=== PATIENT | female | born 1995 | race Caucasian/White ===

== ENCOUNTER 2017-10-17 13:27 | Emergency (ER) | payer OTHER ==
[~2017-10-17] VITALS: Ht 170.2 cm; Wt 145.2 kg
[~2017-10-17 13:27] MED LIST: ALBU90OI INH; Bactrim 400-801 EACH PO; Cheratussin AC118 ML PO; FLUO10 PO; Flonase 0.05% N16 GM; NAPR550 PO; Norco 5-325 Ta1 EACH PO; Prednisone20 MG PO; Pyridium200 MG PO; Roxicodone5 MG PO; Sudogest30 MG PO; Ultram50 MG PO; Zantac150 MG PO; Zofran Odt4 MG PO
[2017-10-17] MEDS ORDERED: Amoxicillin875 MG PO (13:53)
[2017-10-17] MEDS ORDERED: Ciloxan5 ML LEFTEAR (13:53)
[2018-06-19] MEDS ORDERED: BENZ100A PO (03:46)
== END 2017-10-17 13:56 | disposition home or self-care (01) ==
LOC: ER 13:27
DX: H66.92 Otitis media, unspecified, left ear (principal); H72.92 Unspecified perforation of tympanic membrane, left ear; F17.210 Nicotine dependence, cigarettes, uncomplicated
CPT/HCPCS: 99283

== ENCOUNTER 2018-09-29 14:06 | Emergency (ER) | payer OTHER ==
[~2018-09-29] VITALS: Ht 170.2 cm; Wt 172.4 kg
[~2018-09-29 14:06] MED LIST changes: +Amoxicillin875 MG PO; +BENZ100A PO; +Ciloxan5 ML LEFTEAR
[2018-09-29] MEDS ORDERED: ALBU90OI INH (15:09)
== END 2018-09-29 15:14 | disposition home or self-care (01) ==
LOC: ER 14:06
DX: J45.901 Unspecified asthma with (acute) exacerbation (principal); Z87.891 Personal history of nicotine dependence
CPT/HCPCS: 71046; 94640; 99283-25

== ENCOUNTER 2018-10-11 22:11 | Emergency (ER) | payer OTHER ==
[~2018-10-11] VITALS: Ht 172.7 cm; Wt 190.5 kg
[2018-10-12] MEDS ORDERED: ALBU3IS INH (00:59)
[2018-10-12] MEDS ORDERED: Prednisone20 MG PO (00:59)
== END 2018-10-12 01:12 | disposition home or self-care (01) ==
LOC: ER 22:11
DX: J40 Bronchitis, not specified as acute or chronic (principal); F41.0 Panic disorder [episodic paroxysmal anxiety]; Z87.891 Personal history of nicotine dependence
CPT/HCPCS: 70360; 71046; 94640; 96374; 96375; 99284-25; J2060; J2930

== ENCOUNTER 2019-02-15 22:47 | Emergency (ER) | payer OTHER ==
[~2019-02-15] VITALS: Ht 170.2 cm; Wt 180.1 kg
[~2019-02-15 22:47] MED LIST changes: +ALBU3IS INH; +PRED20 PO
[2019-02-15] MEDS ORDERED: Verotin-Gr Cap1 EACH PO (23:28)
[2019-02-15] MEDS ORDERED: BUSP5 PO (23:28)
[2019-02-15] MEDS ORDERED: METF500 PO (23:28)
[2019-02-15] MEDS ORDERED: CETI5 PO (23:28)
[2019-02-15 23:34] LABS: Source, Urine Clean Catch
[2019-02-15 23:37] LABS: Bilirubin, Urine Neg (Neg); Blood, Urine Neg (Neg); Glucose Qualitative, Urine Neg (Neg); Ketones, Urine Neg (Neg); Leukocyte Esterase, Urine 2+ (Neg); Nitrite, Urine Neg (Neg); Protein, Urine Neg (Neg); Specific Gravity, Urine 1.015 (1.003-1.022); Urobilinogen, Urine NORM (Normal)
[2019-02-15 23:43] LABS: Appearance, Urine Cloudy (Clear); Bacteria Few /hpf; Color, Urine Yellow (P-Yellow); Red Blood Cells, Urine Not Seen /hpf (0-2); Squamous Epithelial Cells Many /hpf (Few)
[2019-02-15 23:44] LABS: Amorphous Mod (0-Heavy); Mucus Light (0-Heavy)
[2019-02-15 23:45] LABS: BASOPHILS ABSOLUTE AUTO 0.12 K/mm3 (0.00-0.23); BASOPHILS PERCENT AUTO 1 % (0-2); EOSINOPHILS PERCENT AUTO 4 % (0-6); Hematocrit 47.2 % (33.0-51.0); Hemoglobin 15.7 g/dL (11.5-16.0); IMMATURE GRAN ABSOLUTE AUTO 0.06 K/mm3 (0.00-0.10); IMMATURE GRAN PERCENT AUTO 0 % (0-1); LYMPHOCYTES ABSOLUTE AUTO 4.14 K/mm3 (0.84-5.20); LYMPHOCYTES PERCENT AUTO 29 % (21-46); MONOCYTES ABSOLUTE AUTO 0.92 K/mm3 (0.16-1.47); MONOCYTES PERCENT AUTO 6 % (4-13); Mean Corpuscular HGB Conc 33.3 g/dL (31.5-36.5); Mean Corpuscular Volume 87 fL (80-100); Mean Platelet Volume 9.6 fL (9.1-12.4); NEUTROPHILS ABSOLUTE AUTO 8.49 K/mm3 (1.96-9.15); NEUTROPHILS PERCENT AUTO 59 % (41-73); Platelet Count 408 K/mm3 (150-400); RDW Standard Deviation 41.1 fL (35.1-46.3); Red Blood Cell Count 5.42 M/mm3 (3.80-5.20); White Blood Cell Count 14.33 K/mm3 (4.00-11.30)
[2019-02-16 00:07] LABS: Alanine Aminotransfer (ALT/SGP 39 U/L (12-78); Albumin, Blood 3.6 g/dL (3.4-5.0); Albumin/Globulin Ratio 0.9 (0.8-1.8); Alk Phos 70 U/L (50-136); Anion Gap 7 mmol/L (6-16); Aspartate Aminotrans (AST/SGOT 41 U/L (12-37); Bilirubin, Total 0.5 mg/dL (0.1-1.0); Blood Urea Nitrogen 11 mg/dL (8-24); Bun/Creatinine Ratio 18.4 (12.0-20.0); CO2, Blood 23 mmol/L (21-32); Chloride, Blood 107 mmol/L (98-108); Globulin, Blood 4.1 g/dL (2.2-4.0); Glomerular Filtration Rate >60 (60-); Glucose, Blood 102 mg/dL (70-99); Potassium, Blood 4.4 mmol/L (3.5-5.5); Sodium, Blood 137 mmol/L (136-145); Total Protein, Blood 7.7 g/dL (6.4-8.2)
[2019-02-16 00:21] LABS: Beta HCG, Quantitative, Serum 2903 mIU/mL (0-3)
[2019-02-16] MEDS ORDERED: Macrobid 100 M100 MG PO (00:32)
== END 2019-02-16 00:49 | disposition home or self-care (01) ==
LOC: ER 22:47
PROVIDERS: Emergency Medicine
DX: O23.41 Unspecified infection of urinary tract in pregnancy, first trimester (principal); Z3A.01 Less than 8 weeks gestation of pregnancy; Z91.030 Bee allergy status; Z79.899 Other long term (current) drug therapy; Z79.84 Long term (current) use of oral hypoglycemic drugs; Z87.891 Personal history of nicotine dependence
CPT/HCPCS: 36415; 76801; 76817; 80053; 81001; 81025; 84702; 85025; 86900; 86901; 87086; 99284-25

== ENCOUNTER → 2019-03-13 | Outpatient (CLI) | payer OTHER ==
[~2019-03-13] MED LIST changes: +BUSP5 PO; +CETI5 PO; +METF500 PO; +Macrobid 100 M100 MG PO; +Verotin-Gr Cap1 EACH PO
[2019-03-14 22:06] LABS: CHLAMYDIA TRACHOMATIS, NAA Negative (Negative); NEISSERIA GONORRHOEAE, NAA Negative (Negative)
== END | disposition home or self-care (01) ==
LOC: LAB SHORT 16:40 → LAB 16:40
PROVIDERS: Obstetrics & Gynecology
DX: Z34.00 Encounter for supervision of normal first pregnancy, unspecified trimester (principal); Z86.14 Personal history of Methicillin resistant Staphylococcus aureus infection
CPT/HCPCS: 87081; 87491; 87591; G0123

== ENCOUNTER → 2019-04-18 | Outpatient (CLI) | payer OTHER | END | disposition home or self-care (01) | LOC: LAB 17:51 → LAB SHORT 17:51 | DX: Z09 Encounter for follow-up examination after completed treatment for conditions other than malignant neoplasm (principal); Z86.14 Personal history of Methicillin resistant Staphylococcus aureus infection | CPT/HCPCS: 87081 ==

== ENCOUNTER 2019-09-24 17:00 | Inpatient (IN) | payer OTHER ==
[~2019-09-24] VITALS: Ht 172.7 cm; Wt 198.4 kg
[2019-09-24] MEDS ORDERED: LABE100 PO (17:50)
[2019-09-24 17:51] LABS: BASOPHILS ABSOLUTE AUTO 0.06 K/mm3 (0.00-0.23); BASOPHILS PERCENT AUTO 1 % (0-2); EOSINOPHILS ABSOLUTE AUTO 0.17 K/mm3 (0.00-0.68); EOSINOPHILS PERCENT AUTO 2 % (0-6); Hematocrit 43.5 % (33.0-51.0); Hemoglobin 14.3 g/dL (11.5-16.0); IMMATURE GRAN ABSOLUTE AUTO 0.03 K/mm3 (0.00-0.10); IMMATURE GRAN PERCENT AUTO 0 % (0-1); LYMPHOCYTES ABSOLUTE AUTO 1.89 K/mm3 (0.84-5.20); LYMPHOCYTES PERCENT AUTO 16 % (21-46); MONOCYTES PERCENT AUTO 6 % (4-13); Mean Corpuscular HGB Conc 32.9 g/dL (31.5-36.5); Mean Corpuscular Volume 85 fL (80-100); Mean Platelet Volume 9.9 fL (9.1-12.4); NEUTROPHILS ABSOLUTE AUTO 8.71 K/mm3 (1.96-9.15); NEUTROPHILS PERCENT AUTO 75 % (41-73); Platelet Count 362 K/mm3 (150-400); RDW Coefficient Variation 13.9 % (11.7-14.2); RDW Standard Deviation 43.2 fL (35.1-46.3); White Blood Cell Count 11.56 K/mm3 (4.00-11.30)
[2019-09-24] MEDS ORDERED: SERT25 PO (17:51)
[2019-09-24] MEDS ORDERED: LEVSOD125 PO (17:51)
[2019-09-24 18:54] LABS: Alanine Aminotransfer (ALT/SGP 27 U/L (12-78); Albumin, Blood 2.9 g/dL (3.4-5.0); Albumin/Globulin Ratio 0.6 (0.8-1.8); Alk Phos 164 U/L (50-136); Anion Gap 8 mmol/L (6-16); Aspartate Aminotrans (AST/SGOT 28 U/L (12-37); Bilirubin, Total 0.5 mg/dL (0.1-1.0); Blood Urea Nitrogen 10 mg/dL (8-24); CO2, Blood 19 mmol/L (21-32); Calcium, Blood 9.7 mg/dL (8.5-10.1); Chloride, Blood 109 mmol/L (98-108); Creatinine, Blood 0.59 mg/dL (0.40-1.00); Globulin, Blood 4.9 g/dL (2.2-4.0); Glomerular Filtration Rate >60 (60-); Glucose, Blood 97 mg/dL (70-99); Potassium, Blood 4.3 mmol/L (3.5-5.5); Sodium, Blood 136 mmol/L (136-145); Total Protein, Blood 7.8 g/dL (6.4-8.2)
--- NOTE | 2019-09-24 19:27 | NUR ---
LABS DRAWN FROM IV START PER PROTOCOL
--- NOTE | 2019-09-26 06:55 | NUR ---
pt declines bedside report as she would like to sleep at this time.
--- NOTE | 2019-09-26 10:00 | NUR ---
Patient Discharged to home
== END 2019-09-26 10:20 | disposition home or self-care (01) | DRG 832 ==
LOC: OBS 17:00 → BC 17:06 → OBS 17:24 → BC 17:24
PROVIDERS: ADMIT Advanced Practice Midwife
PROC: 3E0P7VZ Introduction of Hormone into Female Reproductive, Via Natural or Artificial Opening (ICD-10-PCS; principal; 2019-09-24)
DX: O14.03 Mild to moderate pre-eclampsia, third trimester (principal); O99.323 Drug use complicating pregnancy, third trimester; Z3A.36 36 weeks gestation of pregnancy; O24.410 Gestational diabetes mellitus in pregnancy, diet controlled; F12.90 Cannabis use, unspecified, uncomplicated; O61.0 Failed medical induction of labor; O99.343 Other mental disorders complicating pregnancy, third trimester; F41.1 Generalized anxiety disorder; F43.10 Post-traumatic stress disorder, unspecified; O99.213 Obesity complicating pregnancy, third trimester; E66.01 Morbid (severe) obesity due to excess calories; O99.513 Diseases of the respiratory system complicating pregnancy, third trimester; J45.909 Unspecified asthma, uncomplicated; Z86.14 Personal history of Methicillin resistant Staphylococcus aureus infection; Z79.899 Other long term (current) drug therapy
CPT/HCPCS: 36415; 80053; 82947; 85025; 86850; 86900; 86901; J7120

== ENCOUNTER 2019-10-01 15:49 | Inpatient (IN) | payer OTHER ==
[~2019-10-01] VITALS: Ht 172.7 cm; Wt 200.0 kg
[~2019-10-01 15:49] MED LIST changes: +LABE100 PO; +LEVSOD125 PO; +SERT25 PO
[2019-10-01 16:33] LABS: BASOPHILS ABSOLUTE AUTO 0.07 K/mm3 (0.00-0.23); BASOPHILS PERCENT AUTO 1 % (0-2); EOSINOPHILS ABSOLUTE AUTO 0.22 K/mm3 (0.00-0.68); EOSINOPHILS PERCENT AUTO 2 % (0-6); Hemoglobin 13.5 g/dL (11.5-16.0); IMMATURE GRAN ABSOLUTE AUTO 0.03 K/mm3 (0.00-0.10); IMMATURE GRAN PERCENT AUTO 0 % (0-1); LYMPHOCYTES ABSOLUTE AUTO 2.09 K/mm3 (0.84-5.20); LYMPHOCYTES PERCENT AUTO 20 % (21-46); MONOCYTES ABSOLUTE AUTO 0.72 K/mm3 (0.16-1.47); MONOCYTES PERCENT AUTO 7 % (4-13); Mean Corpuscular HGB 28.2 pg (26.0-34.0); Mean Corpuscular HGB Conc 32.9 g/dL (31.5-36.5); Mean Corpuscular Volume 86 fL (80-100); NEUTROPHILS ABSOLUTE AUTO 7.51 K/mm3 (1.96-9.15); NEUTROPHILS PERCENT AUTO 71 % (41-73); Platelet Count 306 K/mm3 (150-400); RDW Coefficient Variation 13.9 % (11.7-14.2); RDW Standard Deviation 43.3 fL (35.1-46.3); Red Blood Cell Count 4.78 M/mm3 (3.80-5.20); White Blood Cell Count 10.64 K/mm3 (4.00-11.30)
--- NOTE | 2019-10-02 07:15 | NUR ---
PT SLEEPING SOUNDLY. WILL ASSESS WHEN SHE WAKES. WILL DISCUSS PLAN OF CARE WITH CNM.
--- NOTE | 2019-10-02 19:24 | NUR ---
REPORT TO ONCOMING SHIFT
--- NOTE | 2019-10-03 09:24 | NUR ---
10/03/19 0924 Josie Palacios 0818 PT ARRIVE TO [facility] OR WITH REYES CATHETER INTACT DRAINING CLEAR YELLOW URINE
[2019-10-03 09:31] LABS: PCO2 Cord - Venous 57.1 mmHg (40-50); PO2 Cord - Venous 16.3 mmHg (28-32); pH Umbilical Cord - Venous 7.25 (7.26-7.35)
[2019-10-03 09:33] LABS: pH Cord - Arterial 7.21 (7.28-7.35)
[2019-10-03 09:34] LABS: PO2 Cord - Arterial < 13 mmHg (16-20)
--- NOTE | 2019-10-03 10:50 | NUR ---
BOTTLE FED DUE TO LOW BLOOD SUGAR FOR NB
--- NOTE | 2019-10-03 16:40 | NUR ---
REPORT TO STEVENSON MEZA RN.
[2019-10-04 05:19] LABS: BASOPHILS ABSOLUTE AUTO 0.05 K/mm3 (0.00-0.23); BASOPHILS PERCENT AUTO 1 % (0-2); EOSINOPHILS ABSOLUTE AUTO 0.15 K/mm3 (0.00-0.68); EOSINOPHILS PERCENT AUTO 1 % (0-6); Hematocrit 36.3 % (33.0-51.0); Hemoglobin 11.5 g/dL (11.5-16.0); IMMATURE GRAN ABSOLUTE AUTO 0.03 K/mm3 (0.00-0.10); IMMATURE GRAN PERCENT AUTO 0 % (0-1); LYMPHOCYTES ABSOLUTE AUTO 1.55 K/mm3 (0.84-5.20); LYMPHOCYTES PERCENT AUTO 14 % (21-46); MONOCYTES ABSOLUTE AUTO 0.88 K/mm3 (0.16-1.47); MONOCYTES PERCENT AUTO 8 % (4-13); Mean Corpuscular HGB 27.8 pg (26.0-34.0); Mean Corpuscular HGB Conc 31.7 g/dL (31.5-36.5); Mean Corpuscular Volume 88 fL (80-100); NEUTROPHILS ABSOLUTE AUTO 8.42 K/mm3 (1.96-9.15); NEUTROPHILS PERCENT AUTO 76 % (41-73); Platelet Count 254 K/mm3 (150-400); RDW Coefficient Variation 14.4 % (11.7-14.2); RDW Standard Deviation 46.1 fL (35.1-46.3); Red Blood Cell Count 4.14 M/mm3 (3.80-5.20); White Blood Cell Count 11.08 K/mm3 (4.00-11.30)
--- NOTE | 2019-10-04 06:03 | NUR ---
OMAR'Malka REYES AT 0445.
--- NOTE | 2019-10-04 06:36 | NUR ---
RN AND BRAKE HOLDER GOT PATIENT UP TO SHOWER. REYES CATHETER D/C, WNL. PATIENT TOLERATED WELL. LINEN CHANGED, NEW BINDERS IN PLACE. JG DRESSING IN PLACE, C/D/I.
--- NOTE | 2019-10-04 13:22 | NUR ---
PATIENT RESTING COMFORTABLY IN BED, PLANS TO AMBULATE DOWN TO [facility] TO SEE NINA
--- NOTE | 2019-10-04 13:31 | NUR ---
ASSIST PATIENT WITH ABDOMEN BINDER AND PERICARE, PT TO AMBULATE DOWN TO [facility] W/ FOB TO VISIT NB
--- NOTE | 2019-10-04 16:55 | NUR ---
REPT OFF TO A LEO RN, PT REMAINS DOWN IN [facility] HOLDING AND STATES SHE "FEELS GREAT" HAVING GOOD PAIN CONTROL WITH PO MEDS. VOIDING W/O DIFFICULTY. MINIMAL ASSIST UP TO BATHROOM
[2019-10-05] MEDS ORDERED: COLACE100 MG PO (09:27)
[2019-10-05] MEDS ORDERED: IBUP800 PO (09:27)
== END 2019-10-05 18:24 | disposition home or self-care (01) | DRG 788 ==
LOC: OBS 15:49 → BC 15:49 → OBS 15:58 → BC 16:02
PROVIDERS: Obstetrics & Gynecology; ADMIT Advanced Practice Midwife
PROC: 3E0P7VZ Introduction of Hormone into Female Reproductive, Via Natural or Artificial Opening (ICD-10-PCS; 2019-10-01)
PROC: 3E033VJ Introduction of Other Hormone into Peripheral Vein, Percutaneous Approach (ICD-10-PCS; 2019-10-02)
PROC: 10H07YZ Insertion of Other Device into Products of Conception, Via Natural or Artificial Opening (ICD-10-PCS; 2019-10-02)
PROC: 10D00Z1 Extraction of Products of Conception, Low, Open Approach (ICD-10-PCS; principal; 2019-10-03 07:30)
DX: O11.4 Pre-existing hypertension with pre-eclampsia, complicating childbirth (principal); O10.02 Pre-existing essential hypertension complicating childbirth; O99.214 Obesity complicating childbirth; E66.01 Morbid (severe) obesity due to excess calories; O24.420 Gestational diabetes mellitus in childbirth, diet controlled; Z3A.38 38 weeks gestation of pregnancy; Z37.0 Single live birth; O99.284 Endocrine, nutritional and metabolic diseases complicating childbirth; E03.9 Hypothyroidism, unspecified; O99.344 Other mental disorders complicating childbirth; F41.9 Anxiety disorder, unspecified; F32.9 Major depressive disorder, single episode, unspecified; O61.0 Failed medical induction of labor; O76 Abnormality in fetal heart rate and rhythm complicating labor and delivery; O77.0 Labor and delivery complicated by meconium in amniotic fluid
CPT/HCPCS: 36415; 36416; 82803; 82947; 85025; 86850; 86900; 86901; J0330; J0690; J1170; J1885; J2250; J2370; J2590; J2704; J2765; J3010; J7120

== ENCOUNTER 2019-11-05 02:16 | Emergency (ER) | payer OTHER ==
[~2019-11-05] VITALS: Ht 170.2 cm; Wt 191.4 kg
[~2019-11-05 02:16] MED LIST changes: +COLACE100 MG PO; +IBUP800 PO
[2019-11-05] MEDS ORDERED: AMOCLA875 (02:42)
[2019-11-05 04:42] LABS: BASOPHILS ABSOLUTE AUTO 0.04 K/mm3 (0.00-0.23); BASOPHILS PERCENT AUTO 1 % (0-2); EOSINOPHILS PERCENT AUTO 7 % (0-6); Hematocrit 41.9 % (33.0-51.0); Hemoglobin 13.4 g/dL (11.5-16.0); IMMATURE GRAN ABSOLUTE AUTO 0.03 K/mm3 (0.00-0.10); IMMATURE GRAN PERCENT AUTO 0 % (0-1); LYMPHOCYTES ABSOLUTE AUTO 3.11 K/mm3 (0.84-5.20); LYMPHOCYTES PERCENT AUTO 38 % (21-46); MONOCYTES ABSOLUTE AUTO 0.53 K/mm3 (0.16-1.47); MONOCYTES PERCENT AUTO 7 % (4-13); Mean Corpuscular HGB 27.7 pg (26.0-34.0); Mean Corpuscular Volume 87 fL (80-100); Mean Platelet Volume 9.2 fL (9.1-12.4); NEUTROPHILS PERCENT AUTO 47 % (41-73); Platelet Count 336 K/mm3 (150-400); RDW Coefficient Variation 13.6 % (11.7-14.2); RDW Standard Deviation 43.3 fL (35.1-46.3); Red Blood Cell Count 4.84 M/mm3 (3.80-5.20); White Blood Cell Count 8.21 K/mm3 (4.00-11.30)
[2019-11-05 05:03] LABS: Alanine Aminotransfer (ALT/SGP 42 U/L (12-78); Albumin, Blood 3.3 g/dL (3.4-5.0); Albumin/Globulin Ratio 0.8 (0.8-1.8); Alk Phos 108 U/L (50-136); Anion Gap 8 mmol/L (6-16); Aspartate Aminotrans (AST/SGOT 40 U/L (12-37); Bilirubin, Total 0.2 mg/dL (0.1-1.0); Blood Urea Nitrogen 15 mg/dL (8-24); Bun/Creatinine Ratio 22.4 (12.0-20.0); CO2, Blood 26 mmol/L (21-32); Calcium, Blood 8.8 mg/dL (8.5-10.1); Chloride, Blood 109 mmol/L (98-108); Creatinine, Blood 0.67 mg/dL (0.40-1.00); Globulin, Blood 4.3 g/dL (2.2-4.0); Glomerular Filtration Rate >60 (60-); Glucose, Blood 98 mg/dL (70-99); Potassium, Blood 3.7 mmol/L (3.5-5.5); Sodium, Blood 143 mmol/L (136-145); Total Protein, Blood 7.6 g/dL (6.4-8.2)
[2019-11-05] MEDS ORDERED: Bactrim Ds Tab1 EACH PO (05:07)
== END 2019-11-05 05:16 | disposition home or self-care (01) ==
LOC: ER 02:16
PROVIDERS: Emergency Medicine
DX: O90.89 Other complications of the puerperium, not elsewhere classified (principal); M79.3 Panniculitis, unspecified; L03.311 Cellulitis of abdominal wall; Z91.038 Other insect allergy status; Z87.891 Personal history of nicotine dependence
CPT/HCPCS: 80053; 85025; 99283; A9270-GY

== ENCOUNTER 2020-12-10 19:33 | Emergency (ER) | payer OTHER ==
[~2020-12-10] VITALS: Ht 172.7 cm; Wt 181.4 kg
[~2020-12-10 19:33] MED LIST changes: +AMOCLA875; +Bactrim Ds Tab1 EACH PO; +CLIN150 PO; +EUTHYROX100 MC1; +SULF500 PO; +ZOLOFT50 MG PO
[2020-12-10 20:34] LABS: BASOPHILS ABSOLUTE AUTO 0.07 K/mm3 (0.00-0.23); BASOPHILS PERCENT AUTO 1 % (0-2); EOSINOPHILS ABSOLUTE AUTO 0.52 K/mm3 (0.00-0.68); EOSINOPHILS PERCENT AUTO 5 % (0-6); Hematocrit 45.2 % (33.0-51.0); Hemoglobin 14.7 g/dL (11.5-16.0); IMMATURE GRAN ABSOLUTE AUTO 0.03 K/mm3 (0.00-0.10); IMMATURE GRAN PERCENT AUTO 0 % (0-1); LYMPHOCYTES ABSOLUTE AUTO 3.12 K/mm3 (0.84-5.20); LYMPHOCYTES PERCENT AUTO 29 % (21-46); MONOCYTES PERCENT AUTO 7 % (4-13); Mean Corpuscular HGB 27.6 pg (26.0-34.0); Mean Corpuscular HGB Conc 32.5 g/dL (31.5-36.5); Mean Corpuscular Volume 85 fL (80-100); Mean Platelet Volume 9.6 fL (9.1-12.4); NEUTROPHILS ABSOLUTE AUTO 6.19 K/mm3 (1.96-9.15); NEUTROPHILS PERCENT AUTO 58 % (41-73); Platelet Count 379 K/mm3 (150-400); RDW Coefficient Variation 13.9 % (11.7-14.2); RDW Standard Deviation 42.9 fL (35.1-46.3); Red Blood Cell Count 5.33 M/mm3 (3.80-5.20); White Blood Cell Count 10.63 K/mm3 (4.00-11.30)
[2020-12-10 20:56] LABS: Alanine Aminotransfer (ALT/SGP 25 U/L (12-78); Albumin, Blood 3.6 g/dL (3.4-5.0); Albumin/Globulin Ratio 0.9 (0.8-1.8); Alk Phos 87 U/L (50-136); Anion Gap 6 mmol/L (6-16); Aspartate Aminotrans (AST/SGOT 17 U/L (12-37); Bilirubin, Total 0.6 mg/dL (0.1-1.0); Blood Urea Nitrogen 11 mg/dL (8-24); CO2, Blood 24 mmol/L (21-32); Calcium, Blood 8.8 mg/dL (8.5-10.1); Chloride, Blood 112 mmol/L (98-108); Creatinine, Blood 0.73 mg/dL (0.40-1.00); Globulin, Blood 4.1 g/dL (2.2-4.0); Glomerular Filtration Rate >60 (60-); Glucose, Blood 88 mg/dL (70-99); Potassium, Blood 3.8 mmol/L (3.5-5.5); Sodium, Blood 142 mmol/L (136-145); Total Protein, Blood 7.7 g/dL (6.4-8.2)
[2020-12-10] MEDS ORDERED: CYCL10 PO (23:16)
[2020-12-10] MEDS ORDERED: Norco 5-325 Ta1 EACH PO (23:16)
== END 2020-12-10 23:30 | disposition home or self-care (01) ==
LOC: ER 19:33
PROVIDERS: Physician Assistant
DX: S30.0XXA Contusion of lower back and pelvis, initial encounter (principal); S20.229A Contusion of unspecified back wall of thorax, initial encounter; Z91.030 Bee allergy status; Z79.899 Other long term (current) drug therapy; Z87.891 Personal history of nicotine dependence; V03.00XA Pedestrian on foot injured in collision with car, pick-up truck or van in nontraffic accident, initial encounter; Y92.481 Parking lot as the place of occurrence of the external cause
CPT/HCPCS: 36415; 74177; 80053; 85025; 96374-59; 99284-25; A9270; J1170; Q9967

== ENCOUNTER 2021-10-09 22:02 | Inpatient (IN) | payer OTHER ==
[~2021-10-09] VITALS: Ht 172.7 cm; Wt 207.3 kg
[~2021-10-09 22:02] MED LIST changes: +CYCL10 PO
[2021-10-09] MEDS ORDERED: Ventolin/Prove6.7 GM INH (22:20)
[2021-10-10 00:06] LABS: BASOPHILS ABSOLUTE AUTO 0.08 K/mm3 (0.00-0.23); BASOPHILS PERCENT AUTO 1 % (0-2); EOSINOPHILS ABSOLUTE AUTO 0.28 K/mm3 (0.00-0.68); EOSINOPHILS PERCENT AUTO 3 % (0-6); Hematocrit 49.6 % (33.0-51.0); Hemoglobin 16.2 g/dL (11.5-16.0); IMMATURE GRAN ABSOLUTE AUTO 0.06 K/mm3 (0.00-0.10); IMMATURE GRAN PERCENT AUTO 1 % (0-1); LYMPHOCYTES ABSOLUTE AUTO 0.71 K/mm3 (0.84-5.20); LYMPHOCYTES PERCENT AUTO 7 % (21-46); MONOCYTES ABSOLUTE AUTO 0.62 K/mm3 (0.16-1.47); MONOCYTES PERCENT AUTO 6 % (4-13); Mean Corpuscular HGB 28.4 pg (26.0-34.0); Mean Corpuscular HGB Conc 32.7 g/dL (31.5-36.5); Mean Corpuscular Volume 87 fL (80-100); Mean Platelet Volume 9.3 fL (9.1-12.4); NEUTROPHILS ABSOLUTE AUTO 8.18 K/mm3 (1.96-9.15); NEUTROPHILS PERCENT AUTO 82 % (41-73); Platelet Count 323 K/mm3 (150-400); RDW Coefficient Variation 13.5 % (11.7-14.2); RDW Standard Deviation 42.7 fL (35.1-46.3); Red Blood Cell Count 5.71 M/mm3 (3.80-5.20); White Blood Cell Count 9.93 K/mm3 (4.00-11.30)
[2021-10-10 00:21] LABS: Anion Gap 8 mmol/L (6-16); Blood Urea Nitrogen 13 mg/dL (8-24); Bun/Creatinine Ratio 17.7 (12.0-20.0); CO2, Blood 25 mmol/L (21-32); Chloride, Blood 104 mmol/L (98-108); Creatinine, Blood 0.74 mg/dL (0.40-1.00); Glomerular Filtration Rate >60 (60-); Glucose, Blood 107 mg/dL (70-99); Sodium, Blood 137 mmol/L (136-145)
--- NOTE | 2021-10-10 07:30 | NUR ---
CALLED DR LARRY- PT IS ALERT AND ORIENTED 25 YO FEMALE ON ROOM AIR WITH NO S&S OF DISTRESS NOTED ON ASSESSMENT. PT HAD AN ORDER FOR OLUMIANT, PER PHARMACY SHE DOES NOT FLORY THE CRITERIA FOR THIS MED. RECIEVED ORDER TO DC. PT IS TO LARGE TO FIT INTO THE CT MACHINE AND VQ SCAN IS DONE IN THE SAME SIZED MACHINE. DR AWARE OF THIS ORDER RECIEVED TO DC THE ORDER FOR VQ AT THIS TIME.
--- NOTE | 2021-10-10 09:18 | NUR ---
Initial Interview with [facility] Community Water Commissioner 1. Who did you speak with? Spoke with patient 2. What is the patient's prior level of functions? Patient lives independently with her two year old daughter and her maricarmen Valdovinos. They live in an apartment with twelve stairs to navigate. Patient able to perform ADL's without assistance. 3. Is the patient and/or family able to provide transportation to and from doctor's appointments and pickling grader prescriptions? 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 She is able to provide transportation to and from appointments and pickling grader medication from pharmacy as needed. 4. Does patient still drive? Yes 5. POA/PCP/NOK: Maricarmen Valdovinos [phone]/Mother Abbi [phone] 6. Discharge goals: Date TBD -Home [facility] preference: [facility] (if needed) -DME: TBD -Medication Management: self manages -Preferred Pharmacy: [facility] -Housekeeping/Cooking: patient and maricarmen take care of housekeeping/cooking 7. List barriers to discharge: None known at this time 8. Discharge Plan: TBD/Home 9. PCP Follow up appointment: Will be scheduled within seven calendar days of discharge 10. Other Notes: patient is not a . Explained importance of hospital follow-up with PCP within 7 days of discharge. Numbers confirmed: [phone]/Collin Valdovinos [phone]
[2021-10-10] MEDS ORDERED: XARELTO20 MG PO (14:48)
[2021-10-10] MEDS ORDERED: PRED20 PO (14:48)
--- NOTE | 2021-10-10 17:44 | NUR ---
DISCHARGE NOTE- PT WAS GIVEN VERBAL AND WRITTEN DISCHARGE INSTRUCTIONS AND ACKNOWLEDGED UNDERSTANDING OF THEM. PT DRESSED HERSELF, IV AND TELE WERE DC'D WELL CONT PULSE OX AT THE TIME OF DISCHARGE. PT WAS ESCORTED TO THE PARKING LOT VIA WC, NO S&S OF DISTRESS AT THE TIME OF DISCHARGE, NO FURTHER QUESTIONS AT THE TIME OF DISCHARGE. PT WAS ALSO PROVIDED WITH A NOTE FROM DR LARRY FOR RETURN TO WORK ON 10-16-2021 ACCOUNTING FOR A 5 DAY QUARANTINE. PT IS AWARE AND RECIEVED EDUCATION ABOUT COVID QUARANTIENE.
--- NOTE | 2021-10-13 07:39 | NUR ---
Per Dr. Lock discharge appropriate. Patient did not oppose discharge. Patient discharged home to residence/apartment. She lives with her daughter and tanna. Date of discharge: 10/10/2021 Date of admission: 10/10/2021 Provisional diagnosis at time of admission: COVID Final Diagnosis at time of discharge: COVID Transportation provided by: Private owned vehicle; patient drove to the ER Location/Residence: [address] [place] [address] DME Ordered: None ordered Follow-ups needed: [facility] will contact patient to schedule hospital follow-up visit. Reinforced need to attend follow-up (telehealth due to COVID). Provider/PCP: Dr. Ray Lock When: WITHIN 1 WEEK Specialty: N/A Confirmed numbers: Patient [phone]/Alternate number [phone]-tanna Aruna Comment: Explained to patient to contact PCP if any questions regarding medication management, social service needs, and if condition worsens go to Urgent Care/ER. No barriers to discharge. Patient has a support network.
== END 2021-10-10 17:10 | disposition home or self-care (01) | DRG 178 ==
LOC: ER 22:02 → MEDS 10-10 02:27
PROVIDERS: Emergency Medicine; ADMIT Internal Medicine
PROC: 3E0333Z Introduction of Anti-inflammatory into Peripheral Vein, Percutaneous Approach (ICD-10-PCS; principal; 2021-10-10)
PROC: 8E0ZXY6 Isolation (ICD-10-PCS; 2021-10-10)
PROC: 5A09357 Assistance with Respiratory Ventilation, Less than 24 Consecutive Hours, Continuous Positive Airway Pressure (ICD-10-PCS; 2021-10-10)
DX: U07.1 COVID-19 (principal); Z68.44 Body mass index [BMI] 60.0-69.9, adult; E66.01 Morbid (severe) obesity due to excess calories; F41.9 Anxiety disorder, unspecified; F32.A Depression, unspecified; E03.9 Hypothyroidism, unspecified; J45.909 Unspecified asthma, uncomplicated; F17.210 Nicotine dependence, cigarettes, uncomplicated; Z90.49 Acquired absence of other specified parts of digestive tract; Z98.891 History of uterine scar from previous surgery; Z91.030 Bee allergy status; Z79.899 Other long term (current) drug therapy
CPT/HCPCS: 71045; 80048; 85025; 85379; 93005; 93010; 93306; 93970; 94644; 94762; 96372; 96374; 99285-25; A9270; J1100; J1650; J7030

== ENCOUNTER 2022-01-19 17:21 | Emergency (ER) | payer OTHER ==
[~2022-01-19] VITALS: Ht 172.7 cm; Wt 202.8 kg
[~2022-01-19 17:21] MED LIST changes: +Ventolin/Prove6.7 GM INH; +XARELTO20 MG PO
== END 2022-01-19 19:20 | disposition left against medical advice (07) ==
LOC: ER 17:21
DX: M79.675 Pain in left toe(s) (principal); Z53.21 Procedure and treatment not carried out due to patient leaving prior to being seen by health care provider; Z79.52 Long term (current) use of systemic steroids; Z79.01 Long term (current) use of anticoagulants
CPT/HCPCS: 73630

== ENCOUNTER 2022-08-25 18:42 | Emergency (ER) | payer OTHER ==
[~2022-08-25] VITALS: Ht 172.7 cm; Wt 208.7 kg
[2022-08-25 19:39] LABS: BASOPHILS ABSOLUTE AUTO 0.12 K/mm3 (0.00-0.23); BASOPHILS PERCENT AUTO 1 % (0-2); EOSINOPHILS ABSOLUTE AUTO 0.55 K/mm3 (0.00-0.68); EOSINOPHILS PERCENT AUTO 5 % (0-6); Hematocrit 46.5 % (33.0-51.0); Hemoglobin 15.5 g/dL (11.5-16.0); IMMATURE GRAN ABSOLUTE AUTO 0.05 K/mm3 (0.00-0.10); IMMATURE GRAN PERCENT AUTO 0 % (0-1); LYMPHOCYTES PERCENT AUTO 26 % (21-46); MONOCYTES PERCENT AUTO 5 % (4-13); Mean Corpuscular HGB 28.4 pg (26.0-34.0); Mean Corpuscular HGB Conc 33.3 g/dL (31.5-36.5); Mean Corpuscular Volume 85 fL (80-100); Mean Platelet Volume 9.1 fL (9.1-12.4); NEUTROPHILS ABSOLUTE AUTO 7.25 K/mm3 (1.96-9.15); NEUTROPHILS PERCENT AUTO 63 % (41-73); Platelet Count 370 K/mm3 (150-400); RDW Coefficient Variation 13.4 % (11.7-14.2); RDW Standard Deviation 41.3 fL (35.1-46.3); Red Blood Cell Count 5.45 M/mm3 (3.80-5.20); White Blood Cell Count 11.57 K/mm3 (4.00-11.30)
[2022-08-25 20:05] LABS: Albumin, Blood 3.5 g/dL (3.4-5.0); Albumin/Globulin Ratio 0.8 (0.8-1.8); Bilirubin, Total 0.8 mg/dL (0.1-1.0); Bun/Creatinine Ratio 16.5 (12.0-20.0); Calcium, Blood 8.9 mg/dL (8.5-10.1); Creatinine, Blood 0.67 mg/dL (0.40-1.00); Globulin, Blood 4.2 g/dL (2.2-4.0); Total Protein, Blood 7.7 g/dL (6.4-8.2)
== END 2022-08-25 23:27 | disposition home or self-care (01) ==
LOC: ER 18:42
PROVIDERS: Student in an Organized Health Care Education/Training Program
DX: R60.0 Localized edema (principal); J45.909 Unspecified asthma, uncomplicated; E66.9 Obesity, unspecified; Z68.44 Body mass index [BMI] 60.0-69.9, adult; Z91.038 Other insect allergy status; Z79.899 Other long term (current) drug therapy
CPT/HCPCS: 36415; 80053; 85025

== ENCOUNTER 2024-07-26 15:32 | Inpatient (IN) | payer OTHER ==
[~2024-07-26] VITALS: Ht 172.7 cm; Wt 219.1 kg
[2024-07-26] MEDS ORDERED: BUSPIRONE HCL10 M6 PO (15:45)
[2024-07-26] MEDS ORDERED: OLMESARTAN MEDOX5 MG PO (15:45)
[2024-07-26] MEDS ORDERED: ALBU90OI INH (15:45)
[2024-07-26] MEDS ORDERED: CHLO25B PO (15:45)
[2024-07-26] MEDS ORDERED: DESVENLAFAXINE100 M3 PO (15:45)
[2024-07-26] MEDS ORDERED: FLUTICASONE-SA1 EAC9 INH (15:45)
[2024-07-26] MEDS ORDERED: LURASIDONE HCL60 MG PO (15:45)
[2024-07-26] MEDS ORDERED: LISDEXAMFETAMIN30 MG PO (15:46)
[2024-07-26] MEDS ORDERED: Albuterol 2.5 MG/3 ML VIAL INH SCH ×2 (15:50→18:15)
[2024-07-26] MEDS ORDERED: MethylPREDNISolone Sod Succ 125 MG Vial IV ONE (15:50)
[2024-07-26 15:54] LABS: BASOPHILS PERCENT AUTO 1 % (0-2); EOSINOPHILS ABSOLUTE AUTO 0.87 K/mm3 (0.00-0.68); EOSINOPHILS PERCENT AUTO 8 % (0-6); Hematocrit 51.3 % (33.0-51.0); Hemoglobin 16.6 g/dL (11.5-16.0); IMMATURE GRAN ABSOLUTE AUTO 0.04 K/mm3 (0.00-0.10); IMMATURE GRAN PERCENT AUTO 0 % (0-1); LYMPHOCYTES ABSOLUTE AUTO 1.86 K/mm3 (0.84-5.20); LYMPHOCYTES PERCENT AUTO 17 % (21-46); MONOCYTES ABSOLUTE AUTO 0.63 K/mm3 (0.16-1.47); MONOCYTES PERCENT AUTO 6 % (4-13); Mean Corpuscular HGB 29.2 pg (26.0-34.0); Mean Corpuscular HGB Conc 32.4 g/dL (31.5-36.5); Mean Corpuscular Volume 90 fL (80-100); Mean Platelet Volume 9.4 fL (9.1-12.4); NEUTROPHILS ABSOLUTE AUTO 7.43 K/mm3 (1.96-9.15); NEUTROPHILS PERCENT AUTO 68 % (41-73); Platelet Count 297 K/mm3 (150-400); RDW Coefficient Variation 14.3 % (11.7-14.2); RDW Standard Deviation 47.5 fL (35.1-46.3); Red Blood Cell Count 5.69 M/mm3 (3.80-5.20); White Blood Cell Count 10.93 K/mm3 (4.00-11.30)
[2024-07-26] MEDS ORDERED: Ondansetron HCl 2 MG / ML 2ML Vial IV ONE (16:00)
[2024-07-26 16:18] LABS: Albumin, Blood 3.4 g/dL (3.4-5.0); Albumin/Globulin Ratio 0.7 (0.8-1.8); Bilirubin, Total 0.5 mg/dL (0.1-1.0); Bun/Creatinine Ratio 16.3 (12.0-20.0); Calcium, Blood 9.2 mg/dL (8.5-10.1); Creatinine, Blood 0.74 mg/dL (0.40-1.00); Globulin, Blood 4.7 g/dL (2.2-4.0); Potassium, Blood 4.1 mmol/L (3.5-5.5); Total Protein, Blood 8.1 g/dL (6.4-8.2)
[2024-07-26 17:02] LABS: Influenza A, PCR NEGATIVE (NEGATIVE); Influenza B, PCR NEGATIVE (NEGATIVE); Resp Syncytial Virus, PCR NEGATIVE (NEGATIVE); SARS-Cov-2 (COVID-19) PCR, MMC NEGATIVE (NEGATIVE)
[2024-07-26] MEDS ORDERED: Ondansetron HCl 2 MG / ML 2ML Vial IV PRN (20:40)
[2024-07-26] MEDS ORDERED: NS 1,000 ML IV SCH (20:40)
[2024-07-26] MEDS ORDERED: Magnesium Sulf 2 GM/Water 50ML 50 ML IV STA (20:45)
[2024-07-26] MEDS ORDERED: Ipratropium/Albuterol SulF 2.5-0.5MG/3 ML Amp INH SCH (20:45)
[2024-07-26] MEDS ORDERED: FLU VACC TS2024-25(6MOS UP)/PF 45 MCG/0.5 ML SYRINGE IM ONE (20:45)
[2024-07-26] MEDS ORDERED: Albuterol 2.5 MG/3 ML VIAL INH PRN (20:45)
[2024-07-26] MEDS ORDERED: BusPIRone HCl 10 MG Tab PO SCH (21:00)
[2024-07-26] MEDS ORDERED: NS 1,000 ML IV ONE (21:12)
[2024-07-26 21:58] LABS: PCO2 Arterial 42 mmHg (35-45); PO2 Arterial 89.3 mmHg (80-100)
[2024-07-26 23:30] VITALS: BP 132/66
[2024-07-27] MEDS ORDERED: MethylPREDNISolone Sod Succ 125 MG Vial IV SCH
[2024-07-27] MEDS ORDERED: LORazepam 2 MG/ML 1ML Injection IV ONE (00:50)
[2024-07-27 03:55] VITALS: BP 132/72
[2024-07-27 04:26] LABS: Hematocrit 51.5 % (33.0-51.0); Hemoglobin 16.6 g/dL (11.5-16.0); Mean Corpuscular HGB 28.5 pg (26.0-34.0); Mean Corpuscular HGB Conc 32.2 g/dL (31.5-36.5); Mean Corpuscular Volume 89 fL (80-100); Mean Platelet Volume 9.7 fL (9.1-12.4); Platelet Count 337 K/mm3 (150-400); RDW Coefficient Variation 14.3 % (11.7-14.2); RDW Standard Deviation 45.5 fL (35.1-46.3); Red Blood Cell Count 5.82 M/mm3 (3.80-5.20); White Blood Cell Count 12.25 K/mm3 (4.00-11.30)
[2024-07-27 04:51] LABS: Bun/Creatinine Ratio 23.5 (12.0-20.0); Calcium, Blood 9.6 mg/dL (8.5-10.1); Creatinine, Blood 0.72 mg/dL (0.40-1.00); Potassium, Blood 4.2 mmol/L (3.5-5.5)
--- NOTE | 2024-07-27 05:57 | NUR ---
SHIFT SUMMARY NOC PT A/O X 4. PLEASANT AND COOPERATIVE WITH CARE. 1PA DUE TO SOB, ALSO CONTINENT. ADMIT FROM ED WITH DX ASTHMA EXACERBATION. PT NORMALLY ON RA, BUT CAME TO ED ON 5L/NC. AFTER ADMIT TO UNIT PT WAS REQUIRING BETWEEN 8-12L/HFNC TO MAINTAIN SPO2 >90%. PT NOTED TO HAVE SEVERE ANXIETY EVEN AFTER RECEIVING BT DOSE OF BUSPAR. PT USES CPAP FOR SLEEP AND RT SETUP WITH 7L/BLEED IN, PT SPO2 >91% AFTER CPAP PLACED AND ONE TIME DOSE IV ATIVAN 0.5 MG FOR ANXIETY. ON CONTINOUOS CARDIAC MONITORING SR/ST IN 90'S-100'S. PT REPORTS TAKING HOME RX LURASIDONE 60 MG DAILY, BUT @ 2100, CURRENT ORDER IS FOR 0900 DUE TO PT TAKING LAST DOSE ON 07-25-24 @ 2100. RX HAS BEEN RECONCILED. PT CURRENTLY RESTING WITH BED IN LOWEST POSITION, AND CALL LIGHT WITHIN REACH.
[2024-07-27 07:35] VITALS: BP 141/62
[2024-07-27] MEDS ORDERED: LURASIDONE (LATUDA) 60 MG TABLET PO SCH ×2 (09:00→21:00)
[2024-07-27] MEDS ORDERED: HydroCHLOROthiazide 25 mg Tab PO SCH (09:00)
[2024-07-27] MEDS ORDERED: Enoxaparin 40 MG/0.4 ML SYR SC SCH (09:00)
[2024-07-27] MEDS ORDERED: Losartan Potassium 25 MG Tab PO SCH (09:00)
[2024-07-27] MEDS ORDERED: LISDEXAMFETAMINE 30 MG PO SCH (09:00)
[2024-07-27] MEDS ORDERED: Venlafaxine HCl 75 MG CapCR PO SCH (09:00)
[2024-07-27] MEDS ORDERED: Mometasone/Formoterol MDI 200/5 mcg 13 GM INH SCH (09:20)
[2024-07-27] MEDS ORDERED: HyDROXyzine HCl 25 MG Tab PO PRN (09:40)
[2024-07-27 12:23] VITALS: BP 134/86
[2024-07-27 15:04] LABS: Adenovirus Not Detected (NOT DETECT); Coronavirus 229E Not Detected (NOT DETECT); Coronavirus HKU1 Not Detected (NOT DETECT); Coronavirus NL63 Not Detected (NOT DETECT); Coronavirus OC43 Not Detected (NOT DETECT); Human Metapneumovirus Not Detected (NOT DETECT); Human Rhinovirus/Enterovirus Not Detected (NOT DETECT); Influenza A/2009-H1 Not Detected (NOT DETECT); Influenza A/H1 Not Detected (NOT DETECT); Influenza A/H3 Not Detected (NOT DETECT); Influenza B Not Detected (NOT DETECT); Parainfluenza Virus 1 Not Detected (NOT DETECT); Parainfluenza Virus 2 Not Detected (NOT DETECT); Parainfluenza Virus 3 Not Detected (NOT DETECT); Parainfluenza Virus 4 Not Detected (NOT DETECT); Respiratory Syncytial Virus Not Detected (NOT DETECT); SARS-Cov-2 (COVID-19), BioFire Detected (NOT DETECT)
[2024-07-27 15:05] LABS: Bordetella pertussis Not Detected (NOT DETECT); Chlamydophila pneumoniae Not Detected (NOT DETECT); Mycoplasma pneumoniae Not Detected (NOT DETECT)
[2024-07-27] MEDS ORDERED: Remdesivir (EUA) 200 MG in NS 250 ML IV ONE (15:25)
--- NOTE | 2024-07-27 15:25 | NUR ---
DR. ANTOINE NOTIFIED OF POSITIVE COVID RESULTS ON RESP PANEL TAKEN TODAY.
[2024-07-27 15:55] VITALS: BP 124/77
[2024-07-27] MEDS ORDERED: MethylPREDNISolone Sod Succ 40 MG VIAL IV SCH (16:00)
--- NOTE | 2024-07-27 17:29 | NUR ---
SHIFT SUMMARY THE PT IS A&OX4, SBA D/T LINE MANAGEMENT AND OXYGEN DEMANS, AND CALLS APPROPAITELY. THE PT WAS TITRAITED DOWN FROM 7LFHNC TO 5L HFNC/OXYMIZER MASK. THE PT IS A MOUTH BREATHER AND OXYGENATES BETTER WITH THE OXYMIZER WHEN IN BED. THE PT TESTED POSITIVE FOR COVID TODAY. DR. ANTOINE STARTED THE PT ON REMDESIVER, AND DR. NELSON ORDERED A REPEAT 1V CHEST XRAY FOR 07/28 MORNING. THE PT HAS NOT COMPLAINED OF SOB, BUT OCCASIONALLY FEELS WHEEZY AND FEELS FATIGUES/LOW IN ENERGY. THE PT CAN BE ANXIOUS AT TIMES AND ATARAX WAS ADDED PRN. THE PT RESPONDED WELL TO THE ATARAX. HER AND SISTER HAVE BEEN AT BEDSIDE AND UPDATED ON CARE. NO ACUTE EVENTS. SEE NOTES FOR UDPATES.
[2024-07-27 19:32] VITALS: BP 138/81
[2024-07-27] MEDS ORDERED: Enoxaparin 60 MG/0.6 ML SYR SC SCH (21:00)
[2024-07-27] MEDS ORDERED: DESVENLAFAXINE 100 MG PO SCH (21:00)
[2024-07-27 23:37] VITALS: BP 131/76
[2024-07-28 03:59] VITALS: BP 142/76
[2024-07-28 04:33] LABS: BASOPHILS ABSOLUTE AUTO 0.04 K/mm3 (0.00-0.23); BASOPHILS PERCENT AUTO 0 % (0-2); EOSINOPHILS ABSOLUTE AUTO 0.01 K/mm3 (0.00-0.68); EOSINOPHILS PERCENT AUTO 0 % (0-6); Hematocrit 50.8 % (33.0-51.0); Hemoglobin 16.5 g/dL (11.5-16.0); IMMATURE GRAN PERCENT AUTO 1 % (0-1); LYMPHOCYTES ABSOLUTE AUTO 1.41 K/mm3 (0.84-5.20); LYMPHOCYTES PERCENT AUTO 8 % (21-46); MONOCYTES ABSOLUTE AUTO 1.02 K/mm3 (0.16-1.47); MONOCYTES PERCENT AUTO 6 % (4-13); Mean Corpuscular HGB 28.8 pg (26.0-34.0); Mean Corpuscular HGB Conc 32.5 g/dL (31.5-36.5); Mean Corpuscular Volume 89 fL (80-100); Mean Platelet Volume 9.7 fL (9.1-12.4); NEUTROPHILS ABSOLUTE AUTO 15.11 K/mm3 (1.96-9.15); NEUTROPHILS PERCENT AUTO 85 % (41-73); Platelet Count 365 K/mm3 (150-400); RDW Coefficient Variation 14.5 % (11.7-14.2); RDW Standard Deviation 46.7 fL (35.1-46.3); Red Blood Cell Count 5.73 M/mm3 (3.80-5.20); White Blood Cell Count 17.69 K/mm3 (4.00-11.30)
--- NOTE | 2024-07-28 05:19 | NUR ---
SHIFT SUMMARY NOC PT A/O X 4. PLEASANT AND COOPERATIVE WITH CARE. STILL TACHYCARDIC IN 100'S. PT COVID POSITIVE AND ON ENHANCED PRECAUTIONS. PT WAS ON 5L/HFNC, BUT WHEN RESTING SATS DROPPED INTO MID 80'S AND O2 INCREASED TO 8L/NC TO MAINTAIN SPO2 >89%. WHEN WEARING CPAP WITH 7L/ BLEED IN PT SATS >94%. PT HAS NOT HAD C/O OF CHEST TIGHTNESS AND REPORTS BREATHING TX ARE HELPING. PT ON CONTINOUS CARDIAC MONITORING IN 80'S-90'S, AND 110'S WITH EXERTION. PT IS BEING FOLLOWED DR NELSON WITH PULMONOLGY. PT CURRENTLY RESTING WITH BEDSIDE, BED IN LOWEST POSITION, AND CALL LIGHT WITHIN REACH.
[2024-07-28 07:33] VITALS: BP 128/81
[2024-07-28] MEDS ORDERED: DESVENLAFAXINE 100 MG PO SCH (09:00)
[2024-07-28] MEDS ORDERED: Acetaminophen 325 MG TABLET PO PRN (09:05)
[2024-07-28 11:35] VITALS: BP 138/92
[2024-07-28] MEDS ORDERED: Remdesivir (EUA) 100 MG in NS 250 ML IV SCH (12:00)
[2024-07-28] MEDS ORDERED: Azithromycin 500 MG in NS 250 ML IV SCH (16:00)
[2024-07-28] MEDS ORDERED: CefTRIAXone Sodium 1,000 MG in NS 100 ML IV SCH (16:00)
[2024-07-28 16:42] VITALS: BP 134/82
--- NOTE | 2024-07-28 17:39 | NUR ---
SHIFT SUMMARY PT A&OX4. SP02 STARTED >90% ON 9L HIFLO, CURRENTLY 4L VENTIMASK. CPAP WHILE SLEEPING W/ 4L BLEED IN. SOB W/ EXERTION. USING INCENTIVE SPIROMETER AND FLUTTER AT BEDSIDE. TELEMETRY SHOWS NSR, HR 80'S-90'S. UP TO BATHROOM SBA TO VOID. ABLE TO TAKE SHOWER W/ ASSISTANCE TODAY. UP IN RECLINER AFTER LUNCH. C/O OF HEADACHE. CALL PLACED TO MD ANTOINE. MD ANTOINE W/ ORDERS FOR TYLENOL. IMAGING IN ROOM THIS AM FOR CHEST XRAY, SEE RESULTS. MD COUCH IN ROOM THIS AM TO ASSESS. IN ROOM MOST OF DAY. REMDESIVER INFUSED PER EMAR. ABX INFUSED PER EMAR. SITTING IN RECLINER EATING DINNER, CALL LIGHT IN REACH.
[2024-07-28 20:33] VITALS: BP 117/72
[2024-07-28] MEDS ORDERED: Lactobacil 2-S.Thermo-Bifido 1 1 Cap PO SCH (21:00)
[2024-07-28 21:09] LABS: Bun/Creatinine Ratio 27.2 (12.0-20.0); Calcium, Blood 9.2 mg/dL (8.5-10.1); Creatinine, Blood 0.7 mg/dL (0.40-1.00); Potassium, Blood 4.6 mmol/L (3.5-5.5)
[2024-07-28 23:42] VITALS: BP 148/89
--- NOTE | 2024-07-29 03:14 | NUR ---
SHIFT SUMMARY ASSUMED CARE OF PT AT 1900. PT A&O4, COOPERATIVE IN CARE AND ABLE TO EXPRESS SELF APPROPRIATELY. PT TRANSFERRED FROM CHAIR TO BED AND O2 SATS DROPPED TO 85% ON 4L NC, THEN QUICKLY RECOVERED ONCE SITTING IN BED. PT DENIES CP AND ANY OVERALL PAIN. PT REPORTED SOME ANXIETY AND GOING THRU A DEPRESSIVE EPISODE AFTER SPEAKING TO DAUGHTER OVER THE PHONE, PT REQUESTED PRN MEDS TO ASSIST IN ANXITEY. CPAP PLACED ON PT OVERNIGHT WHILE SLEEPING. BED IN LOWEST POSITION AND CALL LIGHT WITHIN REACH.
[2024-07-29 04:08] LABS: BASOPHILS ABSOLUTE AUTO 0.03 K/mm3 (0.00-0.23); BASOPHILS PERCENT AUTO 0 % (0-2); EOSINOPHILS ABSOLUTE AUTO 0.01 K/mm3 (0.00-0.68); EOSINOPHILS PERCENT AUTO 0 % (0-6); Hemoglobin 16.5 g/dL (11.5-16.0); IMMATURE GRAN ABSOLUTE AUTO 0.08 K/mm3 (0.00-0.10); IMMATURE GRAN PERCENT AUTO 1 % (0-1); LYMPHOCYTES ABSOLUTE AUTO 1.63 K/mm3 (0.84-5.20); LYMPHOCYTES PERCENT AUTO 11 % (21-46); MONOCYTES ABSOLUTE AUTO 0.79 K/mm3 (0.16-1.47); MONOCYTES PERCENT AUTO 5 % (4-13); Mean Corpuscular HGB 29.3 pg (26.0-34.0); Mean Corpuscular Volume 89 fL (80-100); Mean Platelet Volume 9.6 fL (9.1-12.4); NEUTROPHILS PERCENT AUTO 83 % (41-73); Platelet Count 356 K/mm3 (150-400); RDW Coefficient Variation 14.1 % (11.7-14.2); RDW Standard Deviation 46.3 fL (35.1-46.3); Red Blood Cell Count 5.63 M/mm3 (3.80-5.20); White Blood Cell Count 15.04 K/mm3 (4.00-11.30)
[2024-07-29 04:27] LABS: Bun/Creatinine Ratio 26.2 (12.0-20.0); Calcium, Blood 9.4 mg/dL (8.5-10.1); Creatinine, Blood 0.73 mg/dL (0.40-1.00); Potassium, Blood 4.4 mmol/L (3.5-5.5)
[2024-07-29 05:03] VITALS: BP 144/95
[2024-07-29 07:37] VITALS: BP 137/94
[2024-07-29 12:10] VITALS: BP 148/89
[2024-07-29] MEDS ORDERED: DECADRON6 M1 PO (13:53)
[2024-07-29] MEDS ORDERED: LEVO750 PO (13:54)
[2024-07-29] MEDS ORDERED: VISBIOME 112.51 EACH PO (13:54)
--- NOTE | 2024-07-29 15:58 | NUR ---
UPDATE PT PROVIDED DISCHARGE INSTRUCTIONS. ALL QUESTIONS ANSWERED. PT EDUCATED ON NEW MEDICATIONS. PT TAKEN OUT VIA WC WITH ALL OF HER BELONGINGS.
[2024-07-30] MEDS ORDERED: dexAMETHasone 4 MG TAB PO SCH (09:00)
== END 2024-07-29 16:02 | disposition home or self-care (01) | DRG 177 ==
LOC: ER 15:32 → PCU 20:39
PROVIDERS: Emergency Medicine; Family Medicine; Nurse Practitioner Acute Care; ADMIT Student in an Organized Health Care Education/Training Program
PROC: 4A033R1 Measurement of Arterial Saturation, Peripheral, Percutaneous Approach (ICD-10-PCS; principal; 2024-07-26)
PROC: XW033E5 Introduction of Remdesivir Anti-infective into Peripheral Vein, Percutaneous Approach, New Technology Group 5 (ICD-10-PCS; 2024-07-28)
PROC: 3E0DX3Z Introduction of Anti-inflammatory into Mouth and Pharynx, External Approach (ICD-10-PCS; 2024-07-28)
DX: U07.1 COVID-19 (principal); J12.82 Pneumonia due to coronavirus disease 2019; J96.01 Acute respiratory failure with hypoxia; Z68.44 Body mass index [BMI] 60.0-69.9, adult; J45.901 Unspecified asthma with (acute) exacerbation; E66.01 Morbid (severe) obesity due to excess calories; G47.33 Obstructive sleep apnea (adult) (pediatric); F32.A Depression, unspecified; F41.9 Anxiety disorder, unspecified; I10 Essential (primary) hypertension; Z87.891 Personal history of nicotine dependence; Z79.899 Other long term (current) drug therapy; Z91.038 Other insect allergy status; E03.9 Hypothyroidism, unspecified; Z90.49 Acquired absence of other specified parts of digestive tract; Z98.890 Other specified postprocedural states; Z79.51 Long term (current) use of inhaled steroids
CPT/HCPCS: 0202U; 0241U; 36415; 36600; 71045; 80048; 80053; 82803; 84484; 85025; 85027; 93005; 93010; 93970; 94640; 94644; 94645; 94660; 94664; 94761; 94762; 96374; 99285-25; A9270; J0248; J0456; J0696; J1650; J2060; J2405; J2919; J3475; J7030; J7050

== ENCOUNTER 2024-10-20 23:56 | Inpatient (IN) | payer OTHER ==
[~2024-10-20] VITALS: Ht 170.2 cm; Wt 220.0 kg
[~2024-10-20 23:56] MED LIST changes: +BUSPIRONE HCL10 M6 PO; +CHLO25B PO; +DECADRON6 M1 PO; +DESVENLAFAXINE100 M3 PO; +FLUTICASONE-SA1 EAC9 INH; +LEVO750 PO; +LISDEXAMFETAMIN30 MG PO; +LURASIDONE HCL60 MG PO; +OLMESARTAN MEDOX5 MG PO; +VISBIOME 112.51 EACH PO
[2024-10-21 00:33] LABS: BASOPHILS ABSOLUTE AUTO 0.13 K/mm3 (0.00-0.23); BASOPHILS PERCENT AUTO 1 % (0-2); EOSINOPHILS ABSOLUTE AUTO 1.72 K/mm3 (0.00-0.68); EOSINOPHILS PERCENT AUTO 12 % (0-6); Hematocrit 49.7 % (33.0-51.0); Hemoglobin 16.3 g/dL (11.5-16.0); IMMATURE GRAN ABSOLUTE AUTO 0.09 K/mm3 (0.00-0.10); IMMATURE GRAN PERCENT AUTO 1 % (0-1); LYMPHOCYTES ABSOLUTE AUTO 3.49 K/mm3 (0.84-5.20); LYMPHOCYTES PERCENT AUTO 24 % (21-46); MONOCYTES PERCENT AUTO 5 % (4-13); Mean Corpuscular HGB 29.2 pg (26.0-34.0); Mean Corpuscular HGB Conc 32.8 g/dL (31.5-36.5); Mean Corpuscular Volume 89 fL (80-100); Mean Platelet Volume 9.3 fL (9.1-12.4); NEUTROPHILS PERCENT AUTO 58 % (41-73); Platelet Count 394 K/mm3 (150-400); RDW Coefficient Variation 14.7 % (11.7-14.2); RDW Standard Deviation 47.3 fL (35.1-46.3); Red Blood Cell Count 5.58 M/mm3 (3.80-5.20); White Blood Cell Count 14.53 K/mm3 (4.00-11.30)
[2024-10-21 00:58] LABS: Albumin, Blood 3.4 g/dL (3.4-5.0); Albumin/Globulin Ratio 0.7 (0.8-1.8); Bilirubin, Total 0.6 mg/dL (0.1-1.0); Bun/Creatinine Ratio 19.7 (12.0-20.0); Calcium, Blood 9.2 mg/dL (8.5-10.1); Creatinine, Blood 0.71 mg/dL (0.40-1.00); Globulin, Blood 4.7 g/dL (2.2-4.0); Potassium, Blood 4.2 mmol/L (3.5-5.5); Total Protein, Blood 8.1 g/dL (6.4-8.2)
[2024-10-21] MEDS ORDERED: MethylPREDNISolone Sod Succ 125 MG Vial IV ONE (01:20)
[2024-10-21] MEDS ORDERED: Ipratropium/Albuterol SulF 2.5-0.5MG/3 ML Amp INH ONE (01:20)
[2024-10-21] MEDS ORDERED: Ipratropium/Albuterol SulF 2.5-0.5MG/3 ML Amp INH SCH ×2 (02:40→05:39)
[2024-10-21] MEDS ORDERED: Acetaminophen 325 MG TABLET PO PRN (02:40)
[2024-10-21] MEDS ORDERED: FLU VACC TS2024-25(6MOS UP)/PF 45 MCG/0.5 ML SYRINGE IM ONE (02:40)
[2024-10-21] MEDS ORDERED: Ondansetron HCl 2 MG / ML 2ML Vial IV PRN (02:45)
[2024-10-21 02:55] LABS: Influenza A, PCR NEGATIVE (NEGATIVE); Influenza B, PCR NEGATIVE (NEGATIVE); SARS-Cov-2 (COVID-19) PCR, MMC NEGATIVE (NEGATIVE)
[2024-10-21 03:42] LABS: Resp Syncytial Virus, PCR POSITIVE (NEGATIVE)
[2024-10-21] MEDS ORDERED: Albuterol 2.5 MG/3 ML VIAL INH PRN (05:40)
[2024-10-21 06:02] LABS: BASOPHILS ABSOLUTE AUTO 0.08 K/mm3 (0.00-0.23); BASOPHILS PERCENT AUTO 1 % (0-2); EOSINOPHILS ABSOLUTE AUTO 0.28 K/mm3 (0.00-0.68); EOSINOPHILS PERCENT AUTO 2 % (0-6); Hematocrit 48.8 % (33.0-51.0); Hemoglobin 16.1 g/dL (11.5-16.0); IMMATURE GRAN ABSOLUTE AUTO 0.12 K/mm3 (0.00-0.10); IMMATURE GRAN PERCENT AUTO 1 % (0-1); LYMPHOCYTES PERCENT AUTO 11 % (21-46); MONOCYTES ABSOLUTE AUTO 0.21 K/mm3 (0.16-1.47); MONOCYTES PERCENT AUTO 2 % (4-13); Mean Corpuscular HGB 29.3 pg (26.0-34.0); Mean Corpuscular Volume 89 fL (80-100); Mean Platelet Volume 9.5 fL (9.1-12.4); NEUTROPHILS ABSOLUTE AUTO 11.44 K/mm3 (1.96-9.15); NEUTROPHILS PERCENT AUTO 84 % (41-73); Platelet Count 349 K/mm3 (150-400); RDW Coefficient Variation 15.1 % (11.7-14.2); White Blood Cell Count 13.63 K/mm3 (4.00-11.30)
[2024-10-21 06:36] LABS: Albumin, Blood 3.3 g/dL (3.4-5.0); Albumin/Globulin Ratio 0.7 (0.8-1.8); Bilirubin, Total 0.8 mg/dL (0.1-1.0); Bun/Creatinine Ratio 21.9 (12.0-20.0); Calcium, Blood 9.1 mg/dL (8.5-10.1); Creatinine, Blood 0.68 mg/dL (0.40-1.00); Globulin, Blood 4.9 g/dL (2.2-4.0); Potassium, Blood 5.8 mmol/L (3.5-5.5); Total Protein, Blood 8.2 g/dL (6.4-8.2)
[2024-10-21] MEDS ORDERED: SYNTHROID50 MC1 PO (07:23)
[2024-10-21] MEDS ORDERED: Docusate Sodium 100 MG Cap PO SCH (09:00)
[2024-10-21] MEDS ORDERED: Enoxaparin 40 MG/0.4 ML SYR SC SCH (09:00)
[2024-10-21] MEDS ORDERED: Lactobacil 2-S.Thermo-Bifido 1 1 Cap PO SCH (09:00)
[2024-10-21] MEDS ORDERED: BusPIRone HCl 10 MG Tab PO SCH (09:00)
[2024-10-21] MEDS ORDERED: MethylPREDNISolone Sod Succ 125 MG Vial IV SCH (09:00)
[2024-10-21] MEDS ORDERED: Miconazole Nitrate 2% 85 GM PWD TOP PRN (15:50)
[2024-10-21] MEDS ORDERED: Azithromycin 500 MG in NS 250 ML IV SCH (16:00)
[2024-10-21 16:36] VITALS: BP 142/82
[2024-10-21] MEDS ORDERED: NS 250 ML IV PRN (19:10)
[2024-10-21 20:07] VITALS: BP 147/92
[2024-10-21] MEDS ORDERED: Venlafaxine HCl 75 MG CapCR PO SCH (21:00)
[2024-10-22 03:59] VITALS: BP 128/89
--- NOTE | 2024-10-22 04:03 | NUR ---
SHIFT SUMMARY PATIENT HAD NO ACUTE CHANGES. ALERT, ORIENTED AND INDEPENDENT IN ROOM. ON 5L O2 AND 5L BLEED IN ON CPAP. RT IN TO SETUP CPAP. DENIES CHEST PAIN AND N/V. SOB W/EXERTION. VSS/AFEBRILE. CALL LIGHT IN REACH. BED IN LOWEST POSITION. WILL CONTINUE TO MONITOR UNTIL DAY SHIFT NURSE ASSUMES CARE.
[2024-10-22 08:31] VITALS: BP 139/87
[2024-10-22 08:39] LABS: BASOPHILS ABSOLUTE AUTO 0.04 K/mm3 (0.00-0.23); BASOPHILS PERCENT AUTO 0 % (0-2); EOSINOPHILS ABSOLUTE AUTO 0.02 K/mm3 (0.00-0.68); EOSINOPHILS PERCENT AUTO 0 % (0-6); Hemoglobin 15.6 g/dL (11.5-16.0); IMMATURE GRAN ABSOLUTE AUTO 0.12 K/mm3 (0.00-0.10); IMMATURE GRAN PERCENT AUTO 1 % (0-1); LYMPHOCYTES ABSOLUTE AUTO 2.33 K/mm3 (0.84-5.20); LYMPHOCYTES PERCENT AUTO 13 % (21-46); MONOCYTES ABSOLUTE AUTO 0.79 K/mm3 (0.16-1.47); MONOCYTES PERCENT AUTO 5 % (4-13); Mean Corpuscular HGB 29.2 pg (26.0-34.0); Mean Corpuscular HGB Conc 33.2 g/dL (31.5-36.5); Mean Corpuscular Volume 88 fL (80-100); Mean Platelet Volume 9.6 fL (9.1-12.4); NEUTROPHILS ABSOLUTE AUTO 14.16 K/mm3 (1.96-9.15); NEUTROPHILS PERCENT AUTO 81 % (41-73); Platelet Count 408 K/mm3 (150-400); RDW Coefficient Variation 14.7 % (11.7-14.2); RDW Standard Deviation 46.8 fL (35.1-46.3); Red Blood Cell Count 5.35 M/mm3 (3.80-5.20); White Blood Cell Count 17.46 K/mm3 (4.00-11.30)
[2024-10-22] MEDS ORDERED: LURASIDONE 60 MG TAB PO SCH (09:00)
[2024-10-22] MEDS ORDERED: Levothyroxine Sodium 0.05 MG Tab PO SCH (09:00)
[2024-10-22] MEDS ORDERED: LISDEXAMFETAMINE 30 MG PO SCH (09:00)
[2024-10-22] MEDS ORDERED: Venlafaxine HCl 75 MG CapCR PO SCH (09:00)
[2024-10-22] MEDS ORDERED: Losartan Potassium 25 MG Tab PO SCH (09:00)
[2024-10-22 09:01] LABS: Albumin, Blood 3.4 g/dL (3.4-5.0); Albumin/Globulin Ratio 0.8 (0.8-1.8); Bilirubin, Total 0.5 mg/dL (0.1-1.0); Bun/Creatinine Ratio 25.6 (12.0-20.0); Calcium, Blood 9.4 mg/dL (8.5-10.1); Creatinine, Blood 0.63 mg/dL (0.40-1.00); Globulin, Blood 4.5 g/dL (2.2-4.0); Phosphorus, Blood 4.2 mg/dL (2.5-4.9); Potassium, Blood 4.1 mmol/L (3.5-5.5); Total Protein, Blood 7.9 g/dL (6.4-8.2)
[2024-10-22] MEDS ORDERED: ACET325 PO (12:49)
[2024-10-22] MEDS ORDERED: Prednisone10 MG PO (12:52)
--- NOTE | 2024-10-22 14:43 | NUR ---
PATIENT DID NOT NEED OXYGEN FOR HOME USE, DISCHARGE EDUCATION GIVEN TO PATIENT, PATIENT DENIED FURTHER QUESTIONS, WAITING FOR RIDE HOME, CALL LIGHT WITH IN REACH
--- NOTE | 2024-10-22 15:31 | NUR ---
PATIENT DISCHARGED HOME WITH FAMILY
== END 2024-10-22 15:00 | disposition home or self-care (01) | DRG 189 ==
LOC: ER 23:56 → ERHOLD 23:57 → MEDS 10-21 15:07
PROVIDERS: Emergency Medicine; Hospitalist; Student in an Organized Health Care Education/Training Program; ADMIT Student in an Organized Health Care Education/Training Program
DX: J96.01 Acute respiratory failure with hypoxia (principal); J45.901 Unspecified asthma with (acute) exacerbation; J21.0 Acute bronchiolitis due to respiratory syncytial virus; Z68.45 Body mass index [BMI] 70 or greater, adult; E66.2 Morbid (severe) obesity with alveolar hypoventilation; E03.9 Hypothyroidism, unspecified; F17.200 Nicotine dependence, unspecified, uncomplicated; Z79.899 Other long term (current) drug therapy; Z91.038 Other insect allergy status; Z90.49 Acquired absence of other specified parts of digestive tract
CPT/HCPCS: 0241U; 36415; 71046; 71260; 80053; 83735; 83880; 84100; 84145; 85025; 85379; 93005; 93010; 94640; 94660; 94664; 94761; 94762; 96365; 96367; 96372; 96374; 96375; 96376; 99285; A9270; G0378; J0456; J1650; J2919; J7050; Q9967